=== PATIENT | male | born 1945 | race Caucasian/White ===

== ENCOUNTER 2016-08-31 08:10 | Inpatient (IN) | payer MEDICARE, BC ==
[2016-08-31] VITALS (15 sets, daily range): BP systolic 119–156; BP diastolic 64–80; PULSE 60–91; RESP 13–19; Ht 180.3 cm; Wt 90.8 kg
[~2016-08-31] VITALS: Ht 180.3 cm; Wt 90.8 kg
[2016-08-31] MEDS ORDERED: MELO-110 (09:53)
[2016-08-31] MEDS ORDERED: ATOR20TA65 (09:53)
[2016-08-31] MEDS ORDERED: BICA50TA (09:54)
[2016-08-31] MEDS ORDERED: ROPIVACAINE 0.5 % 30 ML VIAL ONE (10:09)
[2016-08-31] MEDS ORDERED: LIDOCAINE 2% (SDV) 5 ML INJ ONE (10:09)
[2016-08-31] MEDS ORDERED: PROPOFOL 20 ML ONE (10:09)
--- NOTE | 2016-08-31 10:26 | HPN ---
Date/Time of Note Date/Time of Note DATE: 08/31/16 TIME: 10:25 Interval H&P Admission Note Pt. seen H&P reviewed: No system changes ROGER ZAMORA MD Aug 31, 2016 10:26
[2016-08-31] MEDS ORDERED: traMADol 50 MG TAB PO ONE (10:30)
[2016-08-31] MEDS ORDERED: oxyCODONE (CR) 10 MG TAB [oxyCONTIN] PO ONE (10:30)
[2016-08-31] MEDS ORDERED: TRANEXAMIC ACID 1,000 MG in SOD CHLORIDE 0.9% 100 ML IVPB ONE (10:30)
[2016-08-31] MEDS ORDERED: DEXAMETHASONE 1 MG TAB PO ONE (10:30)
[2016-08-31] MEDS ORDERED: GABAPENTIN 300 MG CAP PO ONE (10:30)
[2016-08-31] MEDS ORDERED: POLYMYXIN/BACITRACIN 1L IRRIG ONE (10:35)
[2016-08-31] MEDS ORDERED: BUPIVACAINE 0.5%/EPI (SDV) 30 ML INJ ONE (10:35)
[2016-08-31] MEDS ORDERED: CA CHLORIDE 10% 10 ML SYRINGE ONE (10:35)
[2016-08-31] MEDS ORDERED: THROMBIN 5000 UNIT VIAL ONE (10:35)
[2016-08-31] MEDS ORDERED: CEFAZOLIN 2 GM/50 ML (PMX) 50 ML IVPB ONE (11:00)
[2016-08-31] MEDS ORDERED: BUPIVACAINE 0.5% (SDV) 30 ML, morphine SULFATE (PF) 8 MG, EPINEPHrine 0.3 MG, KETOROLAC... IRR SCH ×7 (11:30)
[2016-08-31] MEDS ORDERED: hydrALAzine 20 MG INJ ONE (11:31)
[2016-08-31] MEDS ORDERED: CEFAZOLIN 1 GM INJ ONE (11:31)
[2016-08-31] MEDS ORDERED: EPHEDrine SULFATE 50 MG/5 ML SYG IV PRN (12:00)
[2016-08-31] MEDS ORDERED: ONDANSETRON 4 MG INJ IV PRN ×2 (12:00→12:30)
[2016-08-31] MEDS ORDERED: DIPHENHYDRAMINE 50 MG INJ IV PRN ×2 (12:00→12:30)
[2016-08-31] MEDS ORDERED: HYDROmorphONE (0.2 MG/ML) 10ML SYG IV PRN ×2 (12:00)
[2016-08-31] MEDS ORDERED: FENTAnyl 50 MCG/ML VIAL IV PRN ×2 (12:00)
[2016-08-31] MEDS ORDERED: MIDAZOLAM 1 MG/ML 2 ML INJ IV PRN (12:00)
[2016-08-31] MEDS ORDERED: METOCLOPRAMIDE 10 MG INJ IV PRN (12:00)
[2016-08-31] MEDS ORDERED: MEPERIDINE 25 MG INJ IV PRN (12:00)
[2016-08-31] MEDS ORDERED: LABETALOL HCL 20MG INJ IV PRN (12:00)
[2016-08-31] MEDS ORDERED: morphine (1 MG/ML) 10ML SYRINGE IV PRN ×2 (12:00)
[2016-08-31] MEDS ORDERED: hydrALAzine 20 MG INJ IV PRN (12:00)
[2016-08-31] MEDS ORDERED: ACETAMINOPHEN 500 MG TAB PO PRN (12:30)
[2016-08-31] MEDS ORDERED: OXYCODONE/ACETAMINOPHEN (5/325) TAB PO PRN ×2 (12:30)
[2016-08-31] MEDS ORDERED: VANCOMYCIN 1 GM (PMX) 250 ML IVPB SCH ×2 (12:30→18:00)
[2016-08-31] MEDS ORDERED: morphine 4 MG/ML VIAL IV PRN (12:30)
[2016-08-31] MEDS ORDERED: morphine 2 MG INJ IV PRN (12:30)
[2016-08-31] MEDS ORDERED: KETOROLAC 15 MG INJ IV PRN (12:30)
[2016-08-31] MEDS ORDERED: MAGNESIUM HYDROXIDE 30ML CUP PO PRN (12:30)
[2016-08-31] MEDS ORDERED: ZOLPIDEM 5 MG TAB PO PRN (12:30)
--- NOTE | 2016-08-31 12:36 | PDOCDIS ---
Discharge Instructions DIAGNOSIS Discharge Diagnosis: Shoulder arthritis CONDITION Patient Condition: Good HOME CARE INSTRUCTIONS: Diet Instructions: Regular ACTIVITY: Activity Restrictions: Slowly Increase Activity Keep Limb Elevated Bathing Restrictions: Shower FOLLOW UP/APPOINTMENTS Appointments 2 weeks SCHOOL/WORK RELEASE May return to School/Work with: With Restrictions School/Work Release Comment: Five pound table top usage for four weeks ROGER ZAMORA MD Aug 31, 2016 12:35
[2016-08-31] MEDS ORDERED: TRANEXAMIC ACID 1,000 MG in SOD CHLORIDE 0.9% 100 ML IV ONE (13:00)
[2016-08-31] MEDS ORDERED: GLUCOSE GEL 15 GRAM TUBE PO PRN ×2 (14:00)
[2016-08-31] MEDS ORDERED: DEXTROSE 50% 50 ML SYRINGE IV PRN ×2 (14:00)
[2016-08-31] MEDS ORDERED: GLUCOSE GEL 15 GRAM TUBE BUCCAL PRN (14:00)
[2016-08-31] MEDS ORDERED: GLUCAGON 1 MG INJ IM PRN (14:00)
--- NOTE | 2016-08-31 14:19 | OPR ---
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 POSTOPERATIVE DIAGNOSES: 1. Left shoulder secondary osteoarthritis. 2. Left shoulder massive unrepairable rotator cuff tear. PROCEDURE: Left reverse total shoulder replacement. Energy Operations Vice President surgeon, Erlin Morgan MD, was asked to be present at my request as a result of significant surgical complexity associated with this procedure. In my opinion, the assistance offered by a surgical elastic knitter hand frame is insufficient, and Dr. Morgan should be compensated for his time. PROCEDURE IN DETAIL: Following administration of general endotracheal anesthesia, the patient was placed in the beach chair position. The left upper extremity was prepped and draped in usual sterile fashion. An extended deltopectoral incision was then undertaken. The conjoint tendon was retracted medially and the subdeltoid plane entered. The superior and posterior rotator cuff as well as nearly most of the subscapularis were detached. The remaining soft tissues were debrided. The humeral head cut was then delivered. Severe arthritic changes were noted on both sides of the joint. Peripheral osteophytes were removed. The humeral head cut was then made in the appropriate degree of version and inclination. The humeral head was retracted, the glenoid exposed. Peripheral osteophytes and a capsulectomy were then completed. The central canal was entered and prepared for a standard baseplate. The actual DePuy baseplate was inserted. Four peripheral screws were used for fixation with solid fixation. A 36 mm glenosphere was then applied as well. The humeral canal was then reamed and prepared for a 12 mm device. A 12 mm device with a 9 mm liner was then impacted with solid fixation. The joint was reduced, taken through a full range of motion with no instability. The joint was irrigated once again, closed in layers. Finally, a Prineo dressing was applied with watertight fixation. A sling was applied. The patient was awakened, transported to recovery room in stable condition, tolerated procedure well. Estimated blood loss for this procedure was 100 mL. Postoperative x- rays will be obtained in the recovery room. Dictated By: ROGER ZAMORA MD CG/NTS Conf#: [id number] DID#: [id number] [facility]
--- NOTE | 2016-08-31 14:20 | RADRPT ---
PROCEDURE: XR left Shoulder. CLINICAL INDICATION: Postoperative evaluation left shoulder TECHNIQUE: 2 views of the left shoulder are available for review. COMPARISON: None available FINDINGS: There is a reverse left shoulder total arthroplasty in anatomic alignment without hardware complica tion. There is surrounding soft tissue swelling and soft tissue gas. Visualized left lung is gross ly clear. IMPRESSION: Recent reverse left shoulder total arthroplasty as above. RPTAT: [facility] .Kd Mohr MD, MD Date Time Electronically viewed and signed by .Kd Mohr MD, MD on 08/31/2016 14:19 .K/
[2016-08-31] MEDS ORDERED: INSULIN ASPART [NOVOLOG] 3 ML PEN SC SCH (17:55)
[2016-08-31] MEDS: DEXAMETHASONE 2 MG TAB PO SCH ×2 (18:22→23:56)
[2016-08-31] MEDS: Insulin NOVOLOG SS MILD Algorithm (SS with meals and bedtime) SC SCH ×2 (18:30→21:33)
[2016-08-31] MEDS ORDERED: GABAPENTIN 300 MG CAP PO SCH (21:00)
[2016-08-31] MEDS: SENNA/DOCUSATE NA (8.6MG/50MG) TAB PO SCH (21:31)
[2016-09-01 00:07] VITALS: BP 115/60; RESP 20
[2016-09-01] MEDS ORDERED: ACCUCHECK AT 2AM (Patients on SS coverage) XX SCH (02:00)
[2016-09-01 05:36] VITALS: BP 132/69; PULSE 55; RESP 19
[2016-09-01] MEDS: DEXAMETHASONE 2 MG TAB PO SCH (05:40)
--- NOTE | 2016-09-01 06:54 | DS ---
Date/Time of Note Date/Time of Note DATE: 09/01/16 TIME: 06:53 Discharge Summary Admission/Discharge Info Admit Date/Time Aug 31, 2016 at 08:10 Discharge Date/Time Today following physical therapy Final Diagnosis Left shoulder rotator cuff tear arthropathy Patient Condition: Good Consults None Procedures Left reverse total shoulder replacement Hx of Present Illness Pain and stiffness left shoulder Hospital Course Surgery followed by discharge home after physical therapy Home Meds Reported Medications Bicalutamide* (Casodex*) 50 Mg Tablet, #90 08/31/16 Atorvastatin Calcium (Atorvastatin Calcium) 20 Mg Tablet, #90 08/31/16 Meloxicam* (Mobic*) 15 Mg Tablet, #90 08/31/16 Pending Labs Laboratory Tests Test 08/31/16 12:51 08/31/16 17:21 08/31/16 21:28 09/01/16 01:56 Bedside Glucose 231mg/dL (70-220) 219mg/dL (70-220) 208mg/dL (70-220) 217mg/dL (70-220) ROGER ZAMORA MD Sep 01, 2016 06:54
--- NOTE | 2016-09-01 06:55 | PN ---
Date/Time of Note Date/Time of Note DATE: 09/01/16 TIME: 06:54 24 hour Interval Summary Patient awake and alert with no complaints. Physical examination reveals that his wound is clean and dry. He is neurologically intact with no signs of DVT. He has minimal pain to palpation. Assessment: Status post total shoulder replacement Plan: Occupational therapy followed by discharge after that. Follow-up in 2 weeks. Physical Exam Vital Signs Date Time Temp Pulse Resp B/P Pulse Ox O2 Delivery O2 Flow Rate FiO2 09/01/16 05:36 98.4 55 19 132/69 94 Room Air 08/31/16 15:15 1.0 Intake and Output 08/31/16 08/31/16 09/01/16 15:00 23:00 07:00 Intake Total 450 ml 590 ml 720 ml Output Total 70 ml Balance 380 ml 590 ml 720 ml VTE Prophylaxis VTE Prophylaxis Intervention: anti-embolic stocking Lines/Catheters IV Catheter Type: Saline Lock Moya in Place: No Results Results 24hrs Laboratory Tests Test 08/31/16 12:51 08/31/16 17:21 08/31/16 21:28 09/01/16 01:56 Bedside Glucose 231 H 219 208 217 Assessment/Plan Chief Complaint/Hosp Course Surgery followed by discharge home after physical therapy Problems: Medications Medications Home Meds Reported Medications Bicalutamide* (Casodex*) 50 Mg Tablet, #90 08/31/16 Atorvastatin Calcium (Atorvastatin Calcium) 20 Mg Tablet, #90 08/31/16 Meloxicam* (Mobic*) 15 Mg Tablet, #90 08/31/16 ROGER ZAMORA MD Sep 01, 2016 06:54
[2016-09-01] MEDS: SENNA/DOCUSATE NA (8.6MG/50MG) TAB PO SCH (08:21)
[2016-09-01] MEDS: Insulin NOVOLOG SS MILD Algorithm (SS with meals and bedtime) SC SCH (08:24)
[2016-09-01 08:32] VITALS: BP 128/77; RESP 19
[2016-09-01] MEDS ORDERED: ASPIRIN 81 MG TAB PO SCH (09:00)
== END 2016-09-01 11:15 | disposition home or self-care (01) | DRG 483 ==
LOC: REC 08:10 → MS1 14:18
PROVIDERS: ADMIT Orthopaedic Surgery; ATTEND Orthopaedic Surgery
PROC: 0RRK00Z Replacement of Left Shoulder Joint with Reverse Ball and Socket Synthetic Substitute, Open Approach (ICD-10-PCS; principal; 2016-08-31 12:00)
DX: M19.012 Primary osteoarthritis, left shoulder (principal); E11.9 Type 2 diabetes mellitus without complications; I10 Essential (primary) hypertension; M75.102 Unspecified rotator cuff tear or rupture of left shoulder, not specified as traumatic; E78.00 Pure hypercholesterolemia, unspecified; Z79.4 Long term (current) use of insulin; Z79.82 Long term (current) use of aspirin; Z85.46 Personal history of malignant neoplasm of prostate
CPT/HCPCS: 73030; 82962; 86999; 97166; Z7610; C1776; J0171; J0360; J0690; J0735; J1815; J1885; J2274; J2795; J3370